=== PATIENT | male | born 1995 | race Caucasian/White ===

== ENCOUNTER 2018-10-13 19:13 | Emergency (ER) | payer OTHER ==
[2018-10-13 22:10] LABS: APPEARANCE, URINE CLEAR (CLEAR); BACTERIA, URINE AUTO NEGATIVE (NEGATIVE); BILIRUBIN, URINE AUTO NEGATIVE (NEGATIVE); BLOOD, URINE BLOOD NEGATIVE (NEGATIVE); COLOR, URINE YELLOW (YELLOW); GLUCOSE, URINE (UA) AUTO NEGATIVE (NEGATIVE); KETONE, URINE AUTO NEGATIVE (NEGATIVE); LEUKOCYTE ESTERASE, URINE AUTO NEGATIVE (NEGATIVE); MUCUS, URINE MODERATE (NEGATIVE); NITRITE, URINE AUTO NEGATIVE (NEGATIVE); PROTEIN, URINE AUTO NEGATIVE (NEGATIVE); RBC, URINE AUTO 1 /HPF (0-3); SPECIFIC GRAVITY URINE AUTO 1.029 (1.002-1.035); SQUAMOUS EPITHELIAL CELL UR AU 0 /HPF (0-6); WBC, URINE AUTO 1 /HPF (0-3)
[2018-10-13] MEDS: cefTRIAXone SOD 250 MG VIAL (J0696) IM (22:45)
[2018-10-13] MEDS: LIDOCAINE 1% SDV 5 ML VIAL DILUENT (22:45)
[2018-10-13] MEDS: AZITHROMYCIN 250 MG TAB PO (22:46)
[2018-10-13 23:13] LABS: CHLAMYDIA DNA AMPLIFICATION NEGATIVE (NEGATIVE); GC DNA AMPLIFICATION NEGATIVE (NEGATIVE)
== END 2018-10-13 23:02 | disposition home or self-care (01) ==
LOC: M ED 19:13
DX: N45.1 Epididymitis (principal); I86.1 Scrotal varices; Z87.891 Personal history of nicotine dependence
CPT/HCPCS: J0696

== ENCOUNTER → 2018-12-20 | Outpatient (REF) | payer OTHER ==
[2018-12-20 11:28] LABS: SEMEN APPEARANCE OPAQUE (OPAQUE); SEMEN VISCOSITY LIQUID (LIQUID)
[2018-12-20 11:29] LABS: SPERM CONCENTRATION 13.3 M/ml (>=15.0); WBC CONCENTRATION >1 M/ml (<=1 M/ml)
== END ==
LOC: M LAB REF 11:04
PROVIDERS: ATTEND Specialist
DX: N50.819 Testicular pain, unspecified (principal); Z31.41 Encounter for fertility testing

== ENCOUNTER → 2019-02-03 | Outpatient (CLI) | payer OTHER ==
--- NOTE | 2019-02-03 18:46 | REP ---
Clinical: Abdominal and scrotal pain. Technique: Axial noncontrast images from the lung bases to the pubic symphysis with coronal and sagittal re-formations. Findings: Lung bases are clear. Liver, spleen, pancreas, gallbladder, bilateral adrenal glands and kidneys are normal. The enteric system is without obstruction or acute inflammatory process. Colonic and sigmoid diverticulosis noted without acute diverticulitis. Pelvis demonstrates normal bladder and age appropriate prostate/seminal vesicles. No ascites. No free air. No adenopathy. Abdominal aorta without aneurysm. No obvious hernia. Musculoskeletal structures are intact and normal. Impression: Diverticulosis without acute diverticulitis. Otherwise normal noncontrast CT of the abdomen and pelvis. Electronically Signed by Johnny Tapia MD 02/03/2019 06:36 P
== END ==
LOC: M RAD 17:56
PROVIDERS: ATTEND Physician Assistant
DX: N50.819 Testicular pain, unspecified (principal); R10.9 Unspecified abdominal pain; K57.30 Diverticulosis of large intestine without perforation or abscess without bleeding